=== PATIENT | male | born 1980 | race Caucasian/White ===

== ENCOUNTER 2017-03-27 23:32 | Emergency (ER) | payer SELFPAY ==
[~2017-03-27] VITALS: Ht 177.8 cm; Wt 77.0 kg
[~2017-03-27 23:32] MED LIST: ALKA-SELT+ OR; MUCINEX600 MG OR
[2017-03-28] MEDS ORDERED: BACTRIM DS1 TAB PO (01:29)
[2017-03-28] MEDS ORDERED: CEPHALEXIN500 MG PO (01:29)
[2017-03-28] MEDS ORDERED: ULTRAM50 M1 PO (01:29)
[2017-03-28 01:40] VITALS: BP 118/71
== END 2017-03-28 01:40 | disposition home or self-care (01) | DRG 603 ==
LOC: ED 23:32
PROC: 0X940ZZ Drainage of Right Axilla, Open Approach (ICD-10-PCS; principal; 2017-03-28)
DX: L02.411 Cutaneous abscess of right axilla (principal); B95.62 Methicillin resistant Staphylococcus aureus infection as the cause of diseases classified elsewhere; J45.909 Unspecified asthma, uncomplicated

== ENCOUNTER 2017-03-28 15:43 | Emergency (ER) | payer SELFPAY ==
[~2017-03-28] VITALS: Ht 180.3 cm; Wt 85.0 kg
[~2017-03-28 15:43] MED LIST changes: +BACTRIM DS1 TAB PO; +CEPHALEXIN500 MG PO; +ULTRAM50 M1 PO
[2017-03-28 19:05] VITALS: BP 133/87
== END 2017-03-28 19:05 | disposition home or self-care (01) | DRG 603 ==
LOC: ED 15:43
DX: L02.411 Cutaneous abscess of right axilla (principal); J45.909 Unspecified asthma, uncomplicated

== ENCOUNTER 2017-04-07 02:14 | Emergency (ER) | payer SELFPAY ==
[~2017-04-07] VITALS: Ht 180.3 cm; Wt 76.8 kg
[2017-04-07] MEDS ORDERED: PERCOCET 5/325M1 TAB PO (04:56)
[2017-04-07 05:20] VITALS: BP 120/74
== END 2017-04-07 05:20 | disposition home or self-care (01) | DRG 605 ==
LOC: ED 02:14
DX: S00.93XA Contusion of unspecified part of head, initial encounter (principal); S01.01XA Laceration without foreign body of scalp, initial encounter; S01.411A Laceration without foreign body of right cheek and temporomandibular area, initial encounter; W10.9XXA Fall (on) (from) unspecified stairs and steps, initial encounter; Y93.89 Activity, other specified; Y92.009 Unspecified place in unspecified non-institutional (private) residence as the place of occurrence of the external cause

== ENCOUNTER 2018-07-14 09:30 | Day surgery (SDC) | payer MEDICAID ==
[~2018-07-14] VITALS: Ht 180.3 cm; Wt 83.9 kg
[~2018-07-14 09:30] MED LIST changes: +CHOLESTEROL MED; +FIBER625 MG PO; +PERCOCET 5/325M1 TAB PO; +TRILEPTAL150 M1 PO; +TRILEPTAL300 M1 PO
[2018-07-14] MEDS ORDERED: VALACYCLOVIR500 MG PO (09:42)
[2018-07-14] MEDS ORDERED: SEROQUEL100 MG PO (09:42)
[2018-07-14] MEDS ORDERED: LIPITOR20 M1 PO (09:43)
[2018-07-14] MEDS ORDERED: ZOLPIDEM10 MG PO (09:44)
[2018-07-14] MEDS ORDERED: DOXEPIN HCL50 MG PO (09:44)
[2018-07-14] MEDS ORDERED: PERCOCET 5/325M1 TAB PO (12:52)
[2018-07-14] MEDS ORDERED: IBUPROFEN200 MG PO (12:52)
[2018-07-14 13:07] VITALS: BP 113/76
== END 2018-07-14 13:40 | disposition home or self-care (01) ==
LOC: ORM 09:30
PROVIDERS: ATTEND Surgery
DX: K60.3 Anal fistula (principal); K64.8 Other hemorrhoids; K59.00 Constipation, unspecified
CPT/HCPCS: C9290

== ENCOUNTER 2022-06-23 09:12 | Emergency (ER) | payer SELFPAY ==
[~2022-06-23] VITALS: Ht 180.3 cm; Wt 72.7 kg
[~2022-06-23 09:12] MED LIST changes: +DOXEPIN HCL50 MG PO; +IBUPROFEN200 MG PO; +LIPITOR20 M1 PO; +SEROQUEL100 MG PO; +VALACYCLOVIR500 MG PO; +ZOLPIDEM10 MG PO
[2022-06-23 09:36] VITALS: BP 152/98
[2022-06-23 09:51] VITALS: BP 152/98
[2022-06-23] MEDS ORDERED: CEPHALEXIN500 MG PO (10:09)
== END 2022-06-23 10:35 | DRG 914 ==
LOC: ED 09:12
DX: S68.122A Partial traumatic metacarpophalangeal amputation of right middle finger, initial encounter (principal); V18.0XXA Pedal cycle driver injured in noncollision transport accident in nontraffic accident, initial encounter